=== PATIENT | female | born 1970 | race Caucasian/White ===

== ENCOUNTER 2017-11-10 12:08 | Inpatient (IN) | payer OTHER ==
[2017-11-10 13:07] VITALS: BMI 27.4
--- NOTE | 2017-11-10 15:29 | HP ---
CIWA Score - CIWA Score Nausea/Vomitin-Mild Nausea/No Vomiting Muscle Tremors: 4-Moderate,w/Arms Extend Anxiety: 4-Mod. Anxious/Guarded Agitation: 4-Moderately Restless Paroxysmal Sweats: 1-Minimal Palms Moist Orientation: 0-Oriented Tacttile Disturbances: 2-Mild Itch/Numbness/Burn Auditory Disturbances: 0-None Visual Disturbances: 0-None Headache: 0-None Present CIWA-Ar Total Score: 16 Admission ROS S - HPI Chief Complaint: alcohol withdrawal sx Allergies/Adverse Reactions: Allergies Allergy/AdvReac Type Severity Reaction Status Date / Time vitamin c Allergy Severe Rash Uncoded 11/10/17 15:31 History of Present Illness: 46 years old female with long history of alcohol nicotine dependence has depression and anxiety is admitted to detox Exam Limitations: No Limitations - Ebola screening Have you traveled outside of the country in the last 21 days: No (N) Have you had contact with anyone from an Ebola affected area: No Have you been sick,other than usual withdrawal symptoms: No Do you have a fever: No - Review of Systems Constitutional: Changes in sleep, Weight Stable EENT: reports: No Symptoms Reported Respiratory: reports: Productive cough (whitish) Cardiac: reports: No Symptoms Reported GI: reports: Nausea, Poor Fluid Intake, Abdominal cramping : reports: No Symptoms Reported Musculoskeletal: reports: No Symptoms Reported, Other (artharitis of the right leg) Integumentary: reports: No Symptoms Reported Neuro: reports: Tremors Endocrine: reports: No Symptoms Reported Hematology: reports: No Symptoms Reported Psychiatric: reports: Judgement Intact, Orientated x3, Anxious, Depressed Other Systems: Reviewed and Negative Patient History - Patient Medical History Hx Anemia: No Hx Asthma: No Hx Chronic Obstructive Pulmonary Disease (COPD): No Hx Cancer: No Hx Cardiac Disorders: No Hx Congestive Heart Failure: No Hx Hypertension: No Hx Hypercholesterolemia: No Hx Pacemaker: No HX Cerebrovascular Accident: No Hx Seizures: No Hx Dementia: No Hx Diabetes: No Hx Gastrointestinal Disorders: No Hx Liver Disease: No Hx Genitourinary Disorders: No Hx Sexually Transmitted Disorders: No Hx Renal Disease (ESRD): No Hx Thyroid Disease: No Hx Human Immunodeficiency Virus (HIV): No Hx Hepatitis C: No Hx Depression: Yes Hx Suicide Attempt: No Hx Bipolar Disorder: No Hx Schizophrenia: No - Patient Surgical History Past Surgical History: Yes Hx Neurologic Surgery: No Hx Cataract Extraction: No Hx Cardiac Surgery: No Hx Lung Surgery: No Hx Breast Surgery: No Hx Breast Biopsy: No Hx Abdominal Surgery: No Hx Appendectomy: No Hx Cholecystectomy: Yes (33 years old) Hx Genitourinary Surgery: No Hx Section: No Hx Orthopedic Surgery: No Hx Hysterectomy: No Anesthesia Reaction: No - PPD History Previous Implant?: Yes Documented Results: Negative w/o proof Implanted On Prior [facility] Admission?: No PPD to be Administered?: Yes - Reproductive History Patient is a Female of Child Bearing Age (11 -55 yrs old): Yes Last Menstrual Period: 11/11/15 Patient : No - Smoking Cessation Smoking history: Current every day smoker Have you smoked in the past 12 months: Yes Aproximately how many cigarettes per day: 20 Cigars Per Day: 0 Hx Chewing Tobacco Use: No Initiated information on smoking cessation: Yes 'Breaking Loose' booklet given: 11/10/17 - Substance & Tx. History Hx Alcohol Use: Yes Hx Substance Use: Yes Substance Use Type: Cocaine Hx Substance Use Treatment: No (first detox) Family Disease History - Family Disease History Family History: Denies (they are living in [place]) Family Disease History: Other: Mother (hiv) Admission Physical Exam [facility] - Vital Signs Vital Signs: Vital Signs - 24 hr 11/10/17 13:04 Temperature 96.7 F L Pulse Rate 82 Respiratory 18 Rate Blood Pressure 144/82 - Physical General Appearance: Yes: Appropriately Dressed, Mild Distress, Tremorous, Irritable, Sweating, Anxious HEENTM: Yes: Hearing grossly Normal, Normocephalic, Normal Voice Respiratory: Yes: Chest Non-Tender, Lungs Clear, No Respiratory Distress, No Accessory Muscle Use Neck: Yes: Supple, Trachea in good position Breast: Yes: Breasts Symetrical, No Discharge Cardiology: Yes: Regular Rhythm, Regular Rate, S1, S2 Abdominal: Yes: Normal Bowel Sounds, Non Tender, Flat Genitourinary: Yes: Within Normal Limits Back: Yes: Normal Inspection Musculoskeletal: Yes: full range of Motion, Gait Steady, Muscle Pain (right leg) Extremities: Yes: Normal Inspection, Normal Range of Motion, Non-Tender, Tremors Neurological: Yes: Fully Oriented, Alert, Motor Strength 5/5, Normal Response, Depressed Affect Integumentary: Yes: Warm Lymphatic: Yes: Within Normal Limits - Diagnostic (1) Alcohol dependence with uncomplicated withdrawal Current Visit: Yes Status: Acute (2) Nicotine dependence Current Visit: Yes Status: Acute Qualifiers: Nicotine product type: cigarettes Substance use status: in withdrawal Qualified Code(s): F17.213 - Nicotine dependence, cigarettes, with withdrawal (3) Anxiety and depression Current Visit: Yes Status: Suspected Cleared for Admission S - Detox or Rehab [facility] Level of Care: Medically Managed Detox Regimen/Protocol: Librium BHS Breath Alcohol Content Breath Alcohol Content: 0 Urine Drug Screen - Control Is Test Valid: Yes - Results Drug Screen Negative: No Urine Drug Screen Results: MARIA TERESA-Cocaine
[2017-11-10] MEDS ORDERED: chlordiazePOXIDE HCL 25 MG CAPSULE PO PRN (15:36)
[2017-11-10] MEDS ORDERED: guaiFENesin/D-METHORPHAN HB 10 ML UNIT-DOSE CUPS PO PRN (15:36)
[2017-11-10] MEDS ORDERED: P-EPHED 60MG/TRIPROLIDI 2.5MG TABLET PO PRN (15:36)
[2017-11-10] MEDS ORDERED: MAGNESIUM CITRATE 300 ML BOTTLE PO PRN (15:36)
[2017-11-10] MEDS ORDERED: LOPERAMIDE HCL 2 MG CAPSULE PO PRN (15:36)
[2017-11-10] MEDS ORDERED: NICOTINE POLACRILEX 4 MG GUM BC PRN (15:36)
[2017-11-10] MEDS ORDERED: MENTHOL/PHENOL 1 EACH UD MM PRN (15:36)
[2017-11-10] MEDS ORDERED: MAG HYDROX/AL HYDROX/SIMETH 30 ML UNIT-DOSE CUP PO PRN (15:36)
[2017-11-10] MEDS ORDERED: NICOTINE 21 MG/24 HOURS TOPICAL PATCH TD PRN (15:36)
[2017-11-10] MEDS ORDERED: MAGNESIUM HYDROX 2400MG/30ML ORAL SUSPENSION 30 ML CUP PO PRN (15:36)
[2017-11-10] MEDS ORDERED: ACETAMINOPHEN 325 MG TABLET (FP) PO PRN (15:36)
[2017-11-10] MEDS ORDERED: IBUPROFEN 400 MG TABLET (FP) PO PRN (15:36)
[2017-11-10] MEDS ORDERED: chlordiazePOXIDE HCL 25 MG CAPSULE ONE (18:18)
[2017-11-10] MEDS ORDERED: MELATONIN 5 MG TABLETS PO PRN (22:00)
[2017-11-10] MEDS: THIAMINE HCL 100 MG TABLET (FP) PO SCH (22:13)
[2017-11-10] MEDS: chlordiazePOXIDE HCL 25 MG CAPSULE PO SCH (22:13)
[2017-11-11] MEDS: chlordiazePOXIDE HCL 25 MG CAPSULE PO SCH ×4 (05:50→22:29)
[2017-11-11] MEDS ORDERED: PRENATAL VITAMINS W/ FOLIC ACID TABLET (FP) PO SCH (10:00)
[2017-11-11 10:40] LABS: HEMATOCRIT 36.6 % (32.4-45.2); HEMOGLOBIN 12.4 GM/dL (10.7-15.3); MCH 28.8 pg (25.7-33.7); MCHC 33.9 g/dl (32.0-36.0); MEAN CELL VOLUME 84.9 fl (80-96); MEAN PLT VOLUME 7.6 fl (7.5-11.1); PLATELET COUNT 222 K/MM3 (134-434); RBC 4.31 M/mm3 (3.60-5.2); RDW 14.2 % (11.6-15.6); WHITE BLOOD COUNT 5.7 K/mm3 (4.0-10.0)
[2017-11-11 10:45] LABS: URINE APPEARANCE CLEAR; URINE BILIRUBIN NEGATIVE (<2.0 mg/dL); URINE COLOR LTYELLOW; URINE GLUCOSE (UA) NEGATIVE (NEGATIVE); URINE KETONE NEGATIVE (NEGATIVE); URINE LEUK ESTERASE TRACE (NEGATIVE); URINE NITRITE NEGATIVE (NEGATIVE); URINE PROTEIN NEGATIVE (NEGATIVE); URINE UROBILINOGEN NEGATIVE mg/dL (0.2-1.0)
[2017-11-11 10:53] LABS: EPI CELLS FEW /HPF (FEW); URINE MUCUS RARE
[2017-11-11 10:57] LABS: CHLORIDE 108 mmol/L (98-107); POTASSIUM 3.4 mmol/L (3.5-5.1); SODIUM 143 mmol/L (136-145)
[2017-11-11 11:29] LABS: ALBUMIN 3.1 g/dl (3.4-5.0); ALK PHOS 120 U/L (45-117); ANION GAP 8 (8-16); BILIRUBIN,TOTAL 0.3 mg/dL (0.2-1.0); BLOOD UREA NITROGEN 12 mg/dL (7-18); CALCIUM 8.2 mg/dL (8.5-10.1); CO2 27 mmol/L (21-32); CREATININE 0.6 mg/dL (0.55-1.02); GLUCOSE,RANDOM 100 mg/dL (74-106); SGOT/AST 34 U/L (15-37); SGPT/ALT 33 U/L (12-78); TOT PROT 6.8 g/dl (6.4-8.2)
--- NOTE | 2017-11-11 14:25 | CONSULT ---
[facility] Psychiatric Consult - Data Date of interview: 11/11/17 Admission source: [facility] Identifying data: First admission to [facility] for this 46 y/o female seeking detox treatment on for alcohol and cocaine dependence.Patient is ,a mother of six,domiciled,unemployed and supported on SSI benefits. Substance Abuse History: Confirmed by patient in this interview.Smoking history : Current every day smoker. Have you smoked in the past 12 months: Yes. Aproximately how many cigarettes per day: 20. Cigars Per Day: 0. Hx Chewing Tobacco Use: No. Initiated information on smoking cessation: Yes. 'Breaking Loose' booklet given: 11/10/17. - Substance & Tx. History. Hx Alcohol Use: Yes. Hx Substance Use: Yes. Substance Use Type: Cocaine. Hx Substance Use Treatment: No (first detox) Medical History: History of cholecystectomy,arthritis and cataracts (both eyes). Psychiatric History: No reported history of psychiatric hospitalizations.Patient is, however, diagnosed with Bipolar Disorder and MDD as per self-report.Ms Christina declares that she has NOT taken psychotropic medications (sertraline,quetiapine,zolpidem) for more than a year.Used to attend outpatient therapy sessions at the [facility] in [facility].She denies history of suicide attempts. Physical/Sexual Abuse/Trauma History: Heavy social stressors : of six months ago,current involvement with [facility],financial difficulties and addictions. Additional Comment: Urine Drug Screen Results: MARIA TERESA-Cocaine.Noted. Mental Status Exam - Mental Status Exam Alert and Oriented to: Time, Place, Person Cognitive Function: Good Patient Appearance: Well Groomed Mood: Nervous, Withdrawn, Anxious Affect: Mood Congruent Patient Behavior: Fatigued, Cooperative Speech Pattern: Clear, Appropriate Voice Loudness: Normal Thought Process: Intact, Goal Oriented Thought Disorder: Not Present Hallucinations: Denies Suicidal Ideation: Denies Insight/Judgement: Poor Sleep: Poorly, Difficulty falling asleep Appetite: Good Muscle strength/Tone: Normal Gait/Station: Normal Psychiatric Findings - Problem List ([facility] 1, 2,3) (1) Alcohol dependence with uncomplicated withdrawal Current Visit: Yes Status: Acute (2) Nicotine dependence Current Visit: Yes Status: Acute Qualifiers: Nicotine product type: cigarettes Substance use status: in withdrawal Qualified Code(s): F17.213 - Nicotine dependence, cigarettes, with withdrawal (3) Cocaine dependence Current Visit: Yes Status: Acute (4) Substance induced mood disorder Current Visit: Yes Status: Suspected (5) History of bipolar disorder Current Visit: No Status: Chronic Comment: Currently asymptomatic.Off medications for several months. (6) Insomnia Current Visit: Yes Status: Acute (7) Non compliance w medication regimen Current Visit: Yes Status: Chronic - Initial Treatment Plan Initial Treatment Plan: Psychoeducation.Sleep hygiene discussed.Detoxification to be completed prior to a comprehensive screening for mood disorder.In the meantime,will start ambien 10 mg po hs.Ordered at patient's request (to address insomnia).Side effects/benefits discussed with the patient.Consent (verbal) given.Observation.
--- NOTE | 2017-11-11 20:48 | PN ---
S CIWA - CIWA Score Nausea/Vomitin Muscle Tremors: 3 Anxiety: 3 Agitation: 2 Paroxysmal Sweats: 3 Orientation: 0-Oriented Tacttile Disturbances: 0-None Auditory Disturbances: 0-None Visual Disturbances: 0-None Headache: 0-None Present CIWA-Ar Total Score: 13 S Progress Note (SOAP) Subjective: Sleep disturbance Shakes sweats Objective: 11/11/17 20:46 A & O x 3 Ambulating steadily within unit Laboratory Last Values WBC 5.7 K/mm3 (4.0-10.0) 11/11/17 07:50 RBC 4.31 M/mm3 (3.60-5.2) 11/11/17 07:50 Hgb 12.4 GM/dL (10.7-15.3) 11/11/17 07:50 Hct 36.6 % (32.4-45.2) 11/11/17 07:50 MCV 84.9 fl (80-96) 11/11/17 07:50 MCH 28.8 pg (25.7-33.7) 11/11/17 07:50 MCHC 33.9 g/dl (32.0-36.0) 11/11/17 07:50 RDW 14.2 % (11.6-15.6) 11/11/17 07:50 Plt Count 222 K/MM3 (134-434) 11/11/17 07:50 MPV 7.6 fl (7.5-11.1) 11/11/17 07:50 Sodium 143 mmol/L (136-145) 11/11/17 07:50 Potassium 3.4 mmol/L (3.5-5.1) L 11/11/17 07:50 Chloride 108 mmol/L (98-107) H 11/11/17 07:50 Carbon Dioxide 27 mmol/L (21-32) 11/11/17 07:50 Anion Gap 8 (8-16) 11/11/17 07:50 BUN 12 mg/dL (7-18) 11/11/17 07:50 Creatinine 0.6 mg/dL (0.55-1.02) 11/11/17 07:50 Creat Clearance w eGFR > 60 (>60) 11/11/17 07:50 Random Glucose 100 mg/dL (74-106) 11/11/17 07:50 Calcium 8.2 mg/dL (8.5-10.1) L 11/11/17 07:50 Total Bilirubin 0.3 mg/dL (0.2-1.0) 11/11/17 07:50 AST 34 U/L (15-37) 11/11/17 07:50 ALT 33 U/L (12-78) 11/11/17 07:50 Alkaline Phosphatase 120 U/L (45-117) H 11/11/17 07:50 Total Protein 6.8 g/dl (6.4-8.2) 11/11/17 07:50 Albumin 3.1 g/dl (3.4-5.0) L 11/11/17 07:50 Urine Color Ltyellow 11/11/17 07:50 Urine Appearance Clear 11/11/17 07:50 Urine pH 7.0 (5.0-8.0) 11/11/17 07:50 Ur Specific [place] 1.011 (1.001-1.035) 11/11/17 07:50 Urine Protein Negative (NEGATIVE) 11/11/17 07:50 Urine Glucose (UA) Negative (NEGATIVE) 11/11/17 07:50 Urine Ketones Negative (NEGATIVE) 11/11/17 07:50 Urine Blood Negative (NEGATIVE) 11/11/17 07:50 Urine Nitrite Negative (NEGATIVE) 11/11/17 07:50 Urine Bilirubin Negative (<2.0 mg/dL) 11/11/17 07:50 Urine Urobilinogen Negative mg/dL (0.2-1.0) 11/11/17 07:50 Ur Leukocyte Esterase Trace (NEGATIVE) 11/11/17 07:50 Urine WBC (Auto) 3 /hpf (3-5) 11/11/17 07:50 Urine RBC (Auto) 1 /hpf (0-3) 11/11/17 07:50 Ur Epithelial Cells Few /HPF (FEW) 11/11/17 07:50 Urine Mucus Rare 11/11/17 07:50 RPR Titer Nonreactive (NONREACTIVE) 11/11/17 07:50 HIV 1&2 Antibody Screen Negative 11/11/17 07:50 HIV P24 Antigen Negative 11/11/17 07:50 labs noted Denies UTI sx Assessment: 11/11/17 20:47 withdrawal sx Plan: continue detox increased hydration to clear urine
[2017-11-11] MEDS: THIAMINE HCL 100 MG TABLET (FP) PO SCH (22:29)
[2017-11-12] MEDS: ZOLPIDEM TARTRATE 10 MG TABLET (PARK CARE ONLY) PO PRN (02:07)
[2017-11-12] MEDS: chlordiazePOXIDE HCL 25 MG CAPSULE PO SCH ×3 (05:51→17:04)
[2017-11-12] MEDS: POTASSIUM CHLORIDE TABS 20 MEQ TABLET.ER (FP) PO SCH ×2 (07:25→22:30)
--- NOTE | 2017-11-12 12:16 | PN ---
S CIWA - CIWA Score Nausea/Vomitin-No Nausea/No Vomiting Muscle Tremors: 4-Moderate,w/Arms Extend Anxiety: 3 Agitation: 3 Paroxysmal Sweats: 3 Orientation: 0-Oriented Tacttile Disturbances: 0-None Auditory Disturbances: 0-None Visual Disturbances: 0-None Headache: 0-None Present CIWA-Ar Total Score: 13 S Progress Note (SOAP) Subjective: sweats shakes anxiety body aches Objective: 11/12/17 12:16 Vital Signs Temperature 97.5 F L 11/12/17 10:24 Pulse Rate 76 11/12/17 10:24 Respiratory Rate 18 11/12/17 10:24 Blood Pressure 145/94 11/12/17 10:24 O2 Sat by Pulse Oximetry (%) Laboratory Tests 11/11/17 11/11/17 11/11/17 07:50 07:50 07:50 WBC 5.7 RBC 4.31 Hgb 12.4 Hct 36.6 MCV 84.9 MCH 28.8 MCHC 33.9 RDW 14.2 Plt Count 222 MPV 7.6 Sodium 143 Potassium 3.4 L Chloride 108 H Carbon Dioxide 27 Anion Gap 8 BUN 12 Creatinine 0.6 Creat Clearance w eGFR > 60 Random Glucose 100 Calcium 8.2 L Total Bilirubin 0.3 AST 34 ALT 33 Alkaline Phosphatase 120 H Total Protein 6.8 Albumin 3.1 L Urine Color Urine Appearance Urine pH Ur Specific [place] Urine Protein Urine Glucose (UA) Urine Ketones Urine Blood Urine Nitrite Urine Bilirubin Urine Urobilinogen Ur Leukocyte Esterase Urine WBC (Auto) Urine RBC (Auto) Ur Epithelial Cells Urine Mucus RPR Titer Nonreactive HIV 1&2 Antibody Screen HIV P24 Antigen 11/11/17 11/11/17 07:50 07:50 WBC RBC Hgb Hct MCV MCH MCHC RDW Plt Count MPV Sodium Potassium Chloride Carbon Dioxide Anion Gap BUN Creatinine Creat Clearance w eGFR Random Glucose Calcium Total Bilirubin AST ALT Alkaline Phosphatase Total Protein Albumin Urine Color Ltyellow Urine Appearance Clear Urine pH 7.0 Ur Specific [place] 1.011 Urine Protein Negative Urine Glucose (UA) Negative Urine Ketones Negative Urine Blood Negative Urine Nitrite Negative Urine Bilirubin Negative Urine Urobilinogen Negative Ur Leukocyte Esterase Trace Urine WBC (Auto) 3 Urine RBC (Auto) 1 Ur Epithelial Cells Few Urine Mucus Rare RPR Titer HIV 1&2 Antibody Screen Negative HIV P24 Antigen Negative potassium 3.4; kdur ordered aaox3 ambulating no acute distress Assessment: 11/12/17 12:17 withdrawal sx Plan: continue detox increase fluids
[2017-11-12] MEDS: chlordiazePOXIDE 5 MG CAPSULE PO SCH (22:31)
[2017-11-12] MEDS: THIAMINE HCL 100 MG TABLET (FP) PO SCH (22:31)
[2017-11-13] MEDS: ZOLPIDEM TARTRATE 10 MG TABLET (PARK CARE ONLY) PO PRN ×2 (01:20→22:20)
[2017-11-13] MEDS: chlordiazePOXIDE 5 MG CAPSULE PO SCH ×3 (05:48→17:23)
[2017-11-13] MEDS: POTASSIUM CHLORIDE TABS 20 MEQ TABLET.ER (FP) PO SCH ×2 (10:44→22:20)
--- NOTE | 2017-11-13 11:30 | PN ---
[facility] Progress Note (SOAP) Subjective: feeling better no sweat no tremor social with peers in day room Objective: 11/13/17 11:26 Vital Signs Temperature 97.0 F L 11/13/17 09:42 Pulse Rate 79 11/13/17 09:42 Respiratory Rate 18 11/13/17 09:42 Blood Pressure 140/87 11/13/17 09:42 O2 Sat by Pulse Oximetry (%) Laboratory Last Values WBC 5.7 K/mm3 (4.0-10.0) 11/11/17 07:50 RBC 4.31 M/mm3 (3.60-5.2) 11/11/17 07:50 Hgb 12.4 GM/dL (10.7-15.3) 11/11/17 07:50 Hct 36.6 % (32.4-45.2) 11/11/17 07:50 MCV 84.9 fl (80-96) 11/11/17 07:50 MCH 28.8 pg (25.7-33.7) 11/11/17 07:50 MCHC 33.9 g/dl (32.0-36.0) 11/11/17 07:50 RDW 14.2 % (11.6-15.6) 11/11/17 07:50 Plt Count 222 K/MM3 (134-434) 11/11/17 07:50 MPV 7.6 fl (7.5-11.1) 11/11/17 07:50 Sodium 143 mmol/L (136-145) 11/11/17 07:50 Potassium 3.4 mmol/L (3.5-5.1) L 11/11/17 07:50 Chloride 108 mmol/L (98-107) H 11/11/17 07:50 Carbon Dioxide 27 mmol/L (21-32) 11/11/17 07:50 Anion Gap 8 (8-16) 11/11/17 07:50 BUN 12 mg/dL (7-18) 11/11/17 07:50 Creatinine 0.6 mg/dL (0.55-1.02) 11/11/17 07:50 Creat Clearance w eGFR > 60 (>60) 11/11/17 07:50 Random Glucose 100 mg/dL (74-106) 11/11/17 07:50 Calcium 8.2 mg/dL (8.5-10.1) L 11/11/17 07:50 Total Bilirubin 0.3 mg/dL (0.2-1.0) 11/11/17 07:50 AST 34 U/L (15-37) 11/11/17 07:50 ALT 33 U/L (12-78) 11/11/17 07:50 Alkaline Phosphatase 120 U/L (45-117) H 11/11/17 07:50 Total Protein 6.8 g/dl (6.4-8.2) 11/11/17 07:50 Albumin 3.1 g/dl (3.4-5.0) L 11/11/17 07:50 Urine Color Ltyellow 11/11/17 07:50 Urine Appearance Clear 11/11/17 07:50 Urine pH 7.0 (5.0-8.0) 11/11/17 07:50 Ur Specific [place] 1.011 (1.001-1.035) 11/11/17 07:50 Urine Protein Negative (NEGATIVE) 11/11/17 07:50 Urine Glucose (UA) Negative (NEGATIVE) 11/11/17 07:50 Urine Ketones Negative (NEGATIVE) 11/11/17 07:50 Urine Blood Negative (NEGATIVE) 11/11/17 07:50 Urine Nitrite Negative (NEGATIVE) 11/11/17 07:50 Urine Bilirubin Negative (<2.0 mg/dL) 11/11/17 07:50 Urine Urobilinogen Negative mg/dL (0.2-1.0) 11/11/17 07:50 Ur Leukocyte Esterase Trace (NEGATIVE) 11/11/17 07:50 Urine WBC (Auto) 3 /hpf (3-5) 11/11/17 07:50 Urine RBC (Auto) 1 /hpf (0-3) 11/11/17 07:50 Ur Epithelial Cells Few /HPF (FEW) 11/11/17 07:50 Urine Mucus Rare 11/11/17 07:50 RPR Titer Nonreactive (NONREACTIVE) 11/11/17 07:50 HIV 1&2 Antibody Screen Negative 11/11/17 07:50 HIV P24 Antigen Negative 11/11/17 07:50 lab noted Assessment: 11/13/17 11:27 mild withdrawal sx Plan: medically supervised detox
[2017-11-13] MEDS: chlordiazePOXIDE HCL 10 MG CAPSULE PO SCH (22:20)
[2017-11-13] MEDS: THIAMINE HCL 100 MG TABLET (FP) PO SCH (22:20)
--- NOTE | 2017-11-14 00:52 | EKG ---
Test Reason : Blood Pressure : / mmHG Vent. Rate : 071 BPM Atrial Rate : 071 BPM P-R Int : 136 ms QRS Dur : 082 ms QT Int : 408 ms P-R-T Axes : 040 059 060 degrees QTc Int : 443 ms NORMAL SINUS RHYTHM NORMAL ECG NO PREVIOUS ECGS AVAILABLE Confirmed by RADHA WOLFF MD ([id number]) on 11/14/2017 12:51:51 AM Referred By: Confirmed By:RADHA WOLFF MD
[2017-11-14] MEDS: chlordiazePOXIDE HCL 10 MG CAPSULE PO SCH (06:04)
[2017-11-14 09:21] VITALS: BP 125/88; PULSE 84; TEMP 96.8
--- NOTE | 2017-11-14 11:20 | DS ---
[facility] Detox Discharge Summary Admission Date: 11/10/17 Discharge Date: 11/14/17 - History Present History: Alcohol Dependence Additional Comments: 46 years old female admitted on 11/10/17 for alcohol withdrawal sx completed alcohol detox regimen tolerated well denies alcohol withdrawal sx alert oriented x 3 no acute distress aftercare [facility] - Physical Exam Results Vital Signs: Vital Signs Temperature 96.8 F L 11/14/17 09:21 Pulse Rate 84 11/14/17 09:21 Respiratory Rate 20 11/14/17 09:21 Blood Pressure 125/88 11/14/17 09:21 O2 Sat by Pulse Oximetry (%) Pertinent Admission Physical Exam Findings: withdrawal sx Vital Signs Temperature 96.8 F L 11/14/17 09:21 Pulse Rate 84 11/14/17 09:21 Respiratory Rate 20 11/14/17 09:21 Blood Pressure 125/88 11/14/17 09:21 O2 Sat by Pulse Oximetry (%) Laboratory Last Values WBC 5.7 K/mm3 (4.0-10.0) 11/11/17 07:50 RBC 4.31 M/mm3 (3.60-5.2) 11/11/17 07:50 Hgb 12.4 GM/dL (10.7-15.3) 11/11/17 07:50 Hct 36.6 % (32.4-45.2) 11/11/17 07:50 MCV 84.9 fl (80-96) 11/11/17 07:50 MCH 28.8 pg (25.7-33.7) 11/11/17 07:50 MCHC 33.9 g/dl (32.0-36.0) 11/11/17 07:50 RDW 14.2 % (11.6-15.6) 11/11/17 07:50 Plt Count 222 K/MM3 (134-434) 11/11/17 07:50 MPV 7.6 fl (7.5-11.1) 11/11/17 07:50 Sodium 143 mmol/L (136-145) 11/11/17 07:50 Potassium 4.6 mmol/L (3.5-5.1) 11/13/17 12:00 Chloride 108 mmol/L (98-107) H 11/11/17 07:50 Carbon Dioxide 27 mmol/L (21-32) 11/11/17 07:50 Anion Gap 8 (8-16) 11/11/17 07:50 BUN 12 mg/dL (7-18) 11/11/17 07:50 Creatinine 0.6 mg/dL (0.55-1.02) 11/11/17 07:50 Creat Clearance w eGFR > 60 (>60) 11/11/17 07:50 Random Glucose 100 mg/dL (74-106) 11/11/17 07:50 Calcium 8.2 mg/dL (8.5-10.1) L 11/11/17 07:50 Total Bilirubin 0.3 mg/dL (0.2-1.0) 11/11/17 07:50 AST 34 U/L (15-37) 11/11/17 07:50 ALT 33 U/L (12-78) 11/11/17 07:50 Alkaline Phosphatase 120 U/L (45-117) H 11/11/17 07:50 Total Protein 6.8 g/dl (6.4-8.2) 11/11/17 07:50 Albumin 3.1 g/dl (3.4-5.0) L 11/11/17 07:50 Urine Color Ltyellow 11/11/17 07:50 Urine Appearance Clear 11/11/17 07:50 Urine pH 7.0 (5.0-8.0) 11/11/17 07:50 Ur Specific [place] 1.011 (1.001-1.035) 11/11/17 07:50 Urine Protein Negative (NEGATIVE) 11/11/17 07:50 Urine Glucose (UA) Negative (NEGATIVE) 11/11/17 07:50 Urine Ketones Negative (NEGATIVE) 11/11/17 07:50 Urine Blood Negative (NEGATIVE) 11/11/17 07:50 Urine Nitrite Negative (NEGATIVE) 11/11/17 07:50 Urine Bilirubin Negative (<2.0 mg/dL) 11/11/17 07:50 Urine Urobilinogen Negative mg/dL (0.2-1.0) 11/11/17 07:50 Ur Leukocyte Esterase Trace (NEGATIVE) 11/11/17 07:50 Urine WBC (Auto) 3 /hpf (3-5) 11/11/17 07:50 Urine RBC (Auto) 1 /hpf (0-3) 11/11/17 07:50 Ur Epithelial Cells Few /HPF (FEW) 11/11/17 07:50 Urine Mucus Rare 11/11/17 07:50 RPR Titer Nonreactive (NONREACTIVE) 11/11/17 07:50 HIV 1&2 Antibody Screen Negative 11/11/17 07:50 HIV P24 Antigen Negative 11/11/17 07:50 lab noted - Treatment Hospital Course: Detox Protocol Followed, Detoxed Safely, Responded well, Discharged Condition Good, Rehab Referral Accepted Patient has Accepted a Re[facility] Referral to: [facility] - Medication Discharge Medications: Ambulatory Orders NK [No Known Home Medication] 11/10/17 - Diagnosis (1) Alcohol dependence with uncomplicated withdrawal Status: Acute (2) Nicotine dependence Status: Acute Qualifiers: Nicotine product type: cigarettes Substance use status: in withdrawal Qualified Code(s): F17.213 - Nicotine dependence, cigarettes, with withdrawal (3) Anxiety and depression Status: Suspected - AMA Did Patient Leave Against Medical Advice: No
== END 2017-11-14 09:18 | disposition home or self-care (01) | DRG 774 ==
LOC: YASAS 12:08 → Y6N 17:33
PROVIDERS: ADMIT Surgery; ATTEND Surgery
PROC: HZ2ZZZZ Detoxification Services for Substance Abuse Treatment (ICD-10-PCS; principal; 2017-11-10)
DX: F10.230 Alcohol dependence with withdrawal, uncomplicated (principal); F14.20 Cocaine dependence, uncomplicated; F17.213 Nicotine dependence, cigarettes, with withdrawal; F41.8 Other specified anxiety disorders; F19.24 Other psychoactive substance dependence with psychoactive substance-induced mood disorder; G47.00 Insomnia, unspecified; Z91.14 Patient's other noncompliance with medication regimen
CPT/HCPCS: 36415; 80053; 81003; 81015; 84132; 85027; 86593; 87389; 93005; 93010